=== PATIENT | female | born 1975 | race Caucasian/White ===

== ENCOUNTER 2017-12-25 17:41 | Emergency (ER) | payer OTHER ==
[2017-12-25 18:08] VITALS: BP 114/65
--- NOTE | 2017-12-25 18:16 | UC ---
Dental HPI - HPI Summary HPI Summary: Pt presents with c/o gradual onset of left lower jaw pain and swelling. Pt has hx of poor dentition and poor access to dental care. - History of Current Complaint Chief Complaint: UCDentalProblem Stated Complaint: DENTAL COMPLAINT Time Seen by Provider: 12/25/17 18:01 Hx Obtained From: Patient ?: No Onset/Duration: Gradual Onset, Lasting Days, Still Present Severity: Moderate Pain Intensity: 7 Aggravating Factor(s): Heat, Cold, Chewing Alleviating Factor(s): Nothing Related History: Swelling - Allergies/Home Medications Allergies/Adverse Reactions: Allergies Allergy/AdvReac Type Severity Reaction Status Date / Time No Known Allergies Allergy Verified 12/25/17 18:00 Home Medications: Home Medications Ibuprofen TAB* [Advil TAB*] 800 mg PO Q6H PRN 12/25/17 [History Confirmed ] PMH/Surg Hx/FS Hx/Imm Hx Previously Healthy: Yes - Surgical History Surgical History: Yes Surgery Procedure, Year, and Place: hysterectomy. ovaries. D&C. appy. scar tissue removal. C-sectionsx2. bladder surgery - Family History Known Family History: Positive: Cardiac Disease - Social History Occupation: Employed Full-time Lives: With Family Alcohol Use: None Substance Use Type: None Smoking Status (MU): Heavy Every Day Tobacco Smoker Type: Cigarettes Amount Used/How Often: 1 PPD Have You Smoked in the Last Year: Yes Household Exposure Type: Cigarettes Review of Systems All Other Systems Reviewed And Are Negative: Yes Constitutional: Positive: Negative Skin: Positive: Negative Eyes: Positive: Negative ENT: Positive: Dental Pain Respiratory: Positive: Negative Cardiovascular: Positive: Negative Gastrointestinal: Positive: Negative Genitourinary: Positive: Negative Motor: Positive: Negative Neurovascular: Positive: Negative Musculoskeletal: Positive: Negative Neurological: Positive: Negative Psychological: Positive: Negative Is Patient Immunocompromised?: No Physical Exam Triage Information Reviewed: Yes Appearance: Pain Distress Vital Signs: Initial Vital Signs Temp 98.2 F 12/25/17 18:01 Pulse 87 12/25/17 18:01 Resp 16 12/25/17 18:01 BP 114/65 12/25/17 18:01 Pulse Ox 98 12/25/17 18:01 Vital Signs Reviewed: Yes Eye Exam: Normal ENT Exam: Normal Dental: Positive: Percussion Tenderness @, Gross Decay/Caries @ Neck exam: Other Neck: Positive: Enlarged Nodes @ - left submaxillary Respiratory Exam: Normal Cardiovascular Exam: Normal Musculoskeletal Exam: Normal Neurological Exam: Normal Psychological Exam: Normal Skin Exam: Normal Dental Complaint Course/Dx - Differential Dx/Diagnosis Differential Diagnosis/Dx: Dental Abscess, Dental Caries, Fractured Tooth Provider Diagnoses: dental abscess. dental caries. Discharge - Sign-Out/Discharge Documenting (check all that apply): Patient Departure All imaging exams completed and their final reports reviewed: No Studies - Discharge Plan Condition: Stable Disposition: HOME Prescriptions: Amoxicillin PO (*) [Amoxicillin 875 MG (*)] 875 mg PO Q12H #20 tab Lidocaine 2% VISCOUS* [Xylocaine 2% Viscous*] 15 ml SWISH SPIT Q4H PRN #1 btl PRN Reason: Pain traMADol TAB* [Ultram*] 25 mg PO Q8H PRN #9 tab MDD 3 PRN Reason: Pain Patient Education Materials: Toothache (ED) Referrals: [facility] [Outside] - As Soon As Possible No Primary Care Phys,NOPCP [Primary Care Provider] - - Billing Disposition and Condition Condition: STABLE Disposition: Home - Attestation Statements Provider Attestation: I was available for consult. This patient was seen by the VICKY. The patient was not presented to, seen by, or examined by me. -Zaria
== END 2017-12-25 18:34 | disposition home or self-care (01) ==
LOC: UCCORT 17:41
DX: K04.7 Periapical abscess without sinus (principal); K02.9 Dental caries, unspecified; F17.210 Nicotine dependence, cigarettes, uncomplicated
CPT/HCPCS: 99202; G0463

== ENCOUNTER 2018-03-30 18:56 | Emergency (ER) | payer OTHER ==
[2018-03-30 19:10] VITALS: BP 166/118
--- NOTE | 2018-03-30 19:26 | UC ---
Hypertension HPI - HPI Summary HPI Summary: 42 yo female presents with concerns of high blood pressure. 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 During this time she has been periodically checking her blood pressure with the nurses and it has always been 150+/90+. About a month ago she began to get dizzy and had her BP checked by one of the nurses and it was 170s/ 100s. She went to the ER and tells me that a workup was negative and that the doctor did not believe her dizziness was related to her blood pressure - she then left AMA as she did not agree with this assessment. Since that time she has been feeling dizzy intermittently and has checked her blood pressure, noting it to be elevated similar to before. She has wanted to seek medical attention, but says that she is afraid to miss work due to fear of being fired and that she "needs to work'. She is here today because she had an instance of dizziness and an opportunity to seek medical care. She denies headache, vision changes, chest pain, palpitations, SOB, abdominal pain, n/v. She tells me that she has no past medical history and takes no medications, but does have a family history of CAD and HTN. She does not have a primary doctor. - History of Current Complaint Chief Complaint: UCGeneralIllness Stated Complaint: HIGH BLOOD PRESSURE Time Seen by Provider: 03/30/18 19:25 Hx Obtained From: Patient Onset/Duration: Gradual Onset - Allergies/Home Medications Allergies/Adverse Reactions: Allergies Allergy/AdvReac Type Severity Reaction Status Date / Time No Known Allergies Allergy Verified 12/25/17 18:00 Home Medications: Home Medications Acetaminophen [Pain Relief] 1,000 mg PO 03/30/18 [History] PMH/Surg Hx/FS Hx/Imm Hx - Additional Past Medical History Additional PMH: None - Surgical History Surgical History: Yes Surgery Procedure, Year, and Place: hysterectomy. ovaries. D&C. appy. scar tissue removal. C-sectionsx2. bladder surgery - Family History Known Family History: Positive: Cardiac Disease - Social History Alcohol Use: Occasionally Substance Use Type: None Smoking Status (MU): Heavy Every Day Tobacco Smoker Type: Cigarettes Amount Used/How Often: 1 PPD Have You Smoked in the Last Year: Yes Household Exposure Type: Cigarettes Review of Systems All Other Systems Reviewed And Are Negative: Yes Constitutional: Positive: Negative Skin: Positive: Negative Eyes: Positive: Negative ENT: Positive: Negative Respiratory: Positive: Negative Cardiovascular: Positive: Negative Gastrointestinal: Positive: Negative Genitourinary: Positive: Negative Neurovascular: Positive: Negative Musculoskeletal: Positive: Negative Neurological: Positive: Other - Dizziness Psychological: Positive: Negative Physical Exam - Summary Physical Exam Summary: GENERAL: NAD. WDWN. No pain distress. SKIN: No rashes, sores, ulcers, masses, lesions. NECK: Supple. Nontender. No lymphadenopathy. CHEST: CTAB. No r/r/w. No accessory muscle use. Breathing comfortably and in no distress. CV: RRR. Without m/r/g. Pulses intact. Brisk cap refill. No JVD or carotid bruit appreciated. ABDOMEN: Soft. NTTP. No distention or guarding. No CVA tenderness. Bowel sounds present MSK: FROM in B/L UEs and LEs with symmetric strength. NEURO: A&Ox3. 3 word recall, remote, recent memory, ability to follow 2-step directions, and attention intact. CN: II: Peripheral bosch intact. Vision normal. III, IV, : EOMI. No nystagmus. PERRLA. V: Sensations intact and symmetric. Opens mouth and clenches teeth. VII: No facial asymmetry. Forehead wrinkles. Grins, shuts eyes, frowns, puffs cheeks. VIII: Hearing intact to finger rub. IX, X: Swallows and coughs. Uvula midline. XI: Shrugs shoulders. Turns head against resistance. XII: No tongue deviation [id number] are intact. Gait with normal base. Romberg: maintains balance, no pronator drift. Normal speech. No facial drooping. PSYCH: Age appropriate behavior. Vital Signs: Initial Vital Signs Temp 97.8 F 03/30/18 18:59 Pulse 86 03/30/18 18:59 Resp 18 03/30/18 18:59 BP 166/118 03/30/18 18:59 Pulse Ox 98 03/30/18 18:59 Vital Signs Reviewed: Yes Hypertension Course/Dx - Course Course Of Treatment: EKG: NSR 65bpm nonspecific intraventricular conduction delay. No STEMI as read by Dr. Pastor. I had a long discussion with the patient regarding potential causes of high blood pressure including underlying disease, stress, diet/salt intake, weight, and family history. I recommended that she be further evaluated in the ED for her symptoms, but she states that she will not go given her bad experience in the past. We talked about decreasing exacerbating factors in her life situation and work life and she is willing to accept a doctor's note requesting that she only work 12 hours in a 24 hour period - hopefully giving her some time to relax from work. I discussed with her the importance of follow up care with a PCP and she is willing to do this, therefore I will start her with a low starting dose of lisinopril and have her f /u within 1 week with [facility] or a PCP. She is agreeable to this plan. I strongly advised her that if she develops worsening symptoms or new symptoms such as a headache, vision changes, weakness, SOB, or chest pain to be seen in the ED. She voiced understanding. - Differential Dx/Diagnosis Provider Diagnosis: High blood pressure, Stress Discharge - Sign-Out/Discharge Documenting (check all that apply): Patient Departure All imaging exams completed and their final reports reviewed: No Studies - Discharge Plan Condition: Stable Disposition: HOME Prescriptions: Lisinopril TAB* [Prinivil TAB 5 MG*] 5 mg PO DAILY #30 tab Patient Education Materials: Hypertension (ED) Forms: *Work Release Referrals: No Primary Care Phys,NOPCP [Primary Care Provider] - [facility] [Outside] - 1 Week Care [facility] [Outside] - 1 Week Additional Instructions: If you develop a fever, shortness of breath, chest pain, new or worsening symptoms - please call your PCP or go to the ED. Please schedule a follow up appointment with a primary doctor within 1 week for a recheck. If your symptoms worsen - please go to the ER for further evaluation - Billing Disposition and Condition Condition: STABLE Disposition: Home
== END 2018-03-30 20:00 | disposition home or self-care (01) ==
LOC: UCCORT 18:56
DX: R03.0 Elevated blood-pressure reading, without diagnosis of hypertension (principal); F43.9 Reaction to severe stress, unspecified; R42 Dizziness and giddiness; F17.210 Nicotine dependence, cigarettes, uncomplicated
CPT/HCPCS: 93005; 99212; G0463